=== PATIENT | male | born 1965 | race Caucasian/White ===

== ENCOUNTER → 2018-02-10 | Outpatient (CLI) | payer OTHER ==
--- NOTE | 2018-02-10 16:05 | XR ---
EXAMINATION TYPE: XR lumbosacral spine min 4V DATE OF EXAM: 02/10/2018 COMPARISON: None HISTORY: Sciatica left TECHNIQUE: Five-view lumbar spine FINDINGS: There 5 lumbar-type vertebral bodies. Pedicles are intact. There is narrowing of the disc h eight L3-4 through L5-S1. Upper lumbar spine disc heights are preserved. Vertebral body heights are p reserved. Mild spondylosis is present. Facet degenerative changes are present within the lumbar spine . No spondylolytic defects are evident. IMPRESSION: 1. Degenerative disc changes mid to lower lumbar spine
== END | disposition home or self-care (01) ==
LOC: RADXRYALE 15:40
PROVIDERS: ATTEND Physician Assistant Medical
DX: M47.816 Spondylosis without myelopathy or radiculopathy, lumbar region (principal)
CPT/HCPCS: 72110

== ENCOUNTER → 2018-02-26 | Outpatient (CLI) | payer OTHER ==
--- NOTE | 2018-02-27 21:23 | MR ---
EXAMINATION TYPE: MR lumbar spine wo con DATE OF EXAM: 02/26/2018 COMPARISON: Lumbar spine x-ray February 10, 2018. HISTORY: Lumbago with sciatica per order. Left-sided back pain into left buttocks since October 2017 pe r patient. TECHNIQUE: Multiplanar, multisequence imaging of the lumbar spine is performed without IV contrast. FINDINGS: Sagittal images of the lumbar spine show vertebral body heights and alignment to appear sat isfactory. There is disc desiccation L3-L3-L4 through the L5-S1 levels. Mild to moderate disc space L 4-L5 and L5-S1 levels is present with vacuum disc phenomenon L5-S1 level seen. Posterior disc herniat ions are seen at these levels with large inferior extrusion L4-L5 level noted sagittal image 7. The c onus medullaris is normal in position and signal ending mid L1 level. Some heterogeneous Modic type I I degenerative changes seen in the posterior L3-L4 disc space. Axial images show the T12-L1, L1-L2, and L2-L3 level all to appear within normal limits. Axial images at the L3-L4 level shows moderate broad disc bulge with central disc protrusion componen t, there is effacement of the anterior thecal sac. There is mild right-sided anterior inferior neural foraminal narrowing. Left-sided neural foramen is patent. Axial images at the L4-L5 level show mild facet degenerative changes bilaterally. There is mild broad disc bulge with left paracentral extrusion extending roughly 9 mm inferior to disc space, there is e ffacement of the anterior and anterolateral thecal sac as well as the central L5 nerve on axial image 6. There is mild right-sided anterior inferior neural foraminal narrowing. Left-sided neural foramen is patent. Axial images at the L5-S1 level show iojo-gy-zpynyvis facet degenerative changes bilaterally. There i s broad disc bulge with central disc protrusion component seen on axial image 3 minimally effacing an terior thecal sac. There is asymmetric mild to moderate right-sided inferior neural foraminal narrowi ng encroaching on exiting right L5 nerve sagittal image 13 along the anterior aspect. No suspicious retroperitoneal findings are identified. IMPRESSION: Multilevel degenerative changes in lumbar spine as detailed above, eccentric disc herniat ion L5-S1 level appears to encroach like anterior margin of the right L5 nerve. Most prominent disc h erniation or extrusion L4-L5 level appears to encroach the central left L5 nerve and likely accounts for patient's left-sided radiculopathy type symptoms.
== END | disposition home or self-care (01) ==
LOC: RADMRIMAIN 11:45
PROVIDERS: ATTEND Physician Assistant Medical
DX: M51.27 Other intervertebral disc displacement, lumbosacral region (principal); M47.816 Spondylosis without myelopathy or radiculopathy, lumbar region
CPT/HCPCS: 72148

== ENCOUNTER → 2018-04-18 | Outpatient (CLI) | payer OTHER ==
--- NOTE | 2018-04-18 12:00 | XR ---
EXAMINATION TYPE: XR chest 2V DATE OF EXAM: 04/18/2018 COMPARISON: NONE HISTORY: Preoperative examination. TECHNIQUE: Frontal and lateral views of the chest are obtained. FINDINGS: There is no focal air space opacity, pleural effusion, or pneumothorax seen. The cardiac silhouette size is within normal limits. The osseous structures are intact. IMPRESSION: No acute cardiopulmonary process.
== END | disposition home or self-care (01) ==
LOC: RADXRYALE 11:37
PROVIDERS: ATTEND Family Medicine
DX: Z01.818 Encounter for other preprocedural examination (principal)
CPT/HCPCS: 71046

== ENCOUNTER → 2018-09-13 | Outpatient (CLI) | payer OTHER | LOC: LABWHC1 10:34 | PROVIDERS: ATTEND Orthopaedic Surgery Orthopaedic Surgery of the Spine | DX: Z01.812 Encounter for preprocedural laboratory examination (principal); N28.9 Disorder of kidney and ureter, unspecified | CPT/HCPCS: 36415; 82565; 84520 ==

== ENCOUNTER 2018-09-26 09:49 | Day surgery (SDC) | payer OTHER ==
[2018-09-26 10:35] VITALS: BP 146/84; RESP 16; TEMP 97.9
[2018-09-26] MEDS ORDERED: LIDOCAINE 1% INJ 10MG/ML (20 ML MDV) SQ ONE (10:47)
[2018-09-26 11:10] VITALS: PULSE 72
--- NOTE | 2018-09-26 11:56 | IR ---
EXAMINATION TYPE: IR cvc insert >=5 years DATE OF EXAM: 09/26/2018 COMPARISON: NONE CLINICAL HISTORY: Infection, discitis Needs long-term intravenous access for antibiotics. PROCEDURE: After informed consent, the skin overlying the left basilic vein was localized with ultrasound and no jeremiah to be compressible and patent. An ultrasound image was obtained and submitted on the patient's c woods. The overlying skin was prepped and draped and Lidocaine was used for local anesthesia. A skin ross was made with a scalpel. Access was gained to the vein under ultrasound guidance with a 21 gau ge needle and a 0.018 inch wire was advanced. Access site was dilated with Peel-Away sheath and cath eter tailored to the appropriate length and advanced such that the distal tip is at the cavoatrial ju nction. Spot image was obtained verifying placement. Catheter was fixed to the skin and a sterile dressing was placed following hemostasis. Catheter was aspirated and flushed with saline. Patient w as discharged in stable condition without complication. Maximal barrier technique is utilized. Ultra sound image is documented on the chart. Ultrasound used with sterile technique. Fluoro time and fluoroscopic images submitted to document procedure: 48 intraoperative images, 0.8 mi nutes fluoroscopy time IMPRESSION: STATUS POST ULTRASOUND AND FLUOROSCOPIC GUIDED PICC LINE PLACEMENT, READY FOR USE. THIS PROCEDURE WAS PERFORMED BY THE UNDERSIGNED.
== END 2018-09-26 11:07 | disposition home or self-care (01) ==
LOC: CATHCVL 09:49
PROVIDERS: ATTEND Radiology Diagnostic Radiology
DX: M46.46 Discitis, unspecified, lumbar region (principal); I10 Essential (primary) hypertension; E66.9 Obesity, unspecified; M46.26 Osteomyelitis of vertebra, lumbar region; Z68.33 Body mass index [BMI] 33.0-33.9, adult; Z79.899 Other long term (current) drug therapy
CPT/HCPCS: 36573; C1751; C1769; J2001

== ENCOUNTER → 2018-11-21 | Day surgery (SDC) | payer OTHER ==
[2018-11-21 12:45] VITALS: BP 159/99; RESP 18; TEMP 97.7
--- NOTE | 2018-11-21 13:58 | IR ---
PICC LINE PLACEMENT: HISTORY: Malfunctioning current PICC line request for exchange over guidewire PROCEDURE: fluoroscopic guidance of PICC line exchange over guidewire. COMPLICATIONS: None ANESTHESIA: 1. 1% Lidocaine locally. FINDINGS/TECHNIQUE: The procedure was explained to the patient. The risks, complications, benefits and alternatives were discussed and any questions were answered. Informed consent was obtained. The patient was placed supine on the fluoroscopic table and prepped and draped in the usual sterile fash ion. Pre-existing PICC line was cut and removed over a a 0.018 guidewire. A 5-Fr sheath was placed over the guidewire. The guidewire and dilator were removed and a 5-F. Double lumen PICC line was lalita love through the sheath with the tip at the level of the SVC. The sheath was removed, the catheter wa s flushed and sutured into position. The patient was stable throughout the procedure and remained st able upon discharge from the Department of Radiology. The vein puncture was patent under ultrasound. A alexander scale image was obtained to document patency of the vein punctured. All elements of the maximal barrier technique were utilized. FLUOROSCOPY TIME: 0.4 minutes and one image submitted IMPRESSION: Successful PICC double lumen line exchange under fluoroscopic guidance.
== END ==
LOC: CATHCVL 12:26
PROVIDERS: ATTEND Radiology Diagnostic Radiology
DX: M46.26 Osteomyelitis of vertebra, lumbar region (principal); T85.618A Breakdown (mechanical) of other specified internal prosthetic devices, implants and grafts, initial encounter; M46.46 Discitis, unspecified, lumbar region; I10 Essential (primary) hypertension; Z72.0 Tobacco use; E66.9 Obesity, unspecified; Z68.34 Body mass index [BMI] 34.0-34.9, adult; Z79.899 Other long term (current) drug therapy
CPT/HCPCS: 36584; C1751; C1769 ×2; 36580

== ENCOUNTER 2020-11-25 15:55 | Inpatient (IN) | payer OTHER ==
[2020-11-25 16:35] LABS: Basophils # (A) 0.1 k/uL (0-0.2); Basophils % (A) 1 %; Eosinophils # (A) 0.1 k/uL (0-0.7); Eosinophils % (A) 1 %; HCT 43.4 % (39.0-53.0); HGB 15.4 gm/dL (13.0-17.5); Hyperchromasia Slight; Lymphocytes # (A) 2.1 k/uL (1.0-4.8); Lymphocytes % (A) 19 %; MCH 33.2 pg (25.0-35.0); MCHC 35.6 g/dL (31.0-37.0); MCV 93.2 fL (80.0-100.0); Mean Platelet Volume 7.2; Monocytes # (A) 0.3 k/uL (0-1.0); Monocytes % (A) 3 %; Neutrophils # (A) 8.5 k/uL (1.3-7.7); Neutrophils % (A) 75 %; Platelet Count 189 k/uL (150-450); RBC 4.66 m/uL (4.30-5.90); WBC 11.3 k/uL (3.8-10.6)
--- NOTE | 2020-11-25 16:39 | XR ---
EXAMINATION TYPE: XR chest 2V DATE OF EXAM: 11/25/2020 COMPARISON: Chest x-ray April 18, 2018 HISTORY: Chest pain since yesterday. TECHNIQUE: Frontal and lateral views of the chest are obtained. FINDINGS: There is chronic parenchymal change without suspicious focal air space opacity, pleural ef fusion, or pneumothorax seen. Diminish inspiration on current study. The cardiac silhouette size is e nlarged. The osseous structures are intact. IMPRESSION: Cardiomegaly and chronic changes without acute pulmonary process.
[2020-11-25] MEDS ORDERED: MORPHINE SULFATE 4 MG/ML SYRINGE IVP STA (16:40)
[2020-11-25 16:41] LABS: Prothrombin Time 10.9 sec (9.0-12.0)
[2020-11-25 16:43] LABS: Albumin 4.8 g/dL (3.5-5.0); Calcium 10.1 mg/dL (8.4-10.2); Potassium 4.4 mmol/L (3.5-5.1); Total Bilirubin 0.8 mg/dL (0.2-1.3); Total Protein 7.3 g/dL (6.3-8.2)
[2020-11-25] MEDS ORDERED: ATORVASTATIN 80 MG TAB PO STA (16:46)
[2020-11-25] MEDS ORDERED: NALOXONE 0.4 MG/ML 1 ML VIAL IV PRN (16:49)
[2020-11-25] MEDS ORDERED: HEPARIN SODIUM 1,000 UN/ML (10ML VL) IV ONE (16:49)
--- NOTE | 2020-11-25 16:51 | ED ---
General Adult HPI - General Chief complaint: Chest Pain Stated complaint: chest pain Time Seen by Provider: 11/25/20 16:09 Source: patient, EMS, RN notes reviewed, old records reviewed Mode of arrival: EMS Limitations: no limitations - History of Present Illness Initial comments: 55-year-old male history of hypertension, current smoker presenting for ev aluation of squeezing chest pain which began yesterday evening and was relieved with rest. Patient has no known history of coronary artery disease. He does have a positive family history of coronary artery disease in his father in his mid 50s. He was given aspirin nitroglycerin by EMS prior to arrival. His pain did slightly worsen today. Patient has persistent substernal squeezing chest pain which is described as moderate to severe. - Related Data Home Medications Medication Instructions Recorded Confirmed Cyclobenzaprine [Flexeril] 10 mg PO TID PRN 09/23/18 11/21/18 Losartan/Hydrochlorothiazide 1 tab PO QAM 09/23/18 11/21/18 [Losartan-Hctz 100-25 mg Tab] atenoloL [Atenolol] 25 mg PO HS 09/23/18 11/21/18 oxyCODONE-APAP 10-325MG [Percocet 1 tab PO Q6H PRN 09/23/18 11/21/18 10-325 mg] Allergies Allergy/AdvReac Type Severity Reaction Status Date / Time No Known Allergies Allergy Verified 09/23/18 09:29 Review of Systems ROS Statement: Those systems with pertinent positive or pertinent negative responses have been documented in the HPI. ROS Other: All systems not noted in ROS Statement are negative. Past Medical History Past Medical History: Hypertension, Sleep Apnea/CPAP/BIPAP Additional Past Medical History / Comment(s): CURRENT: BACK SURGERY APRIL 26, INFECTION IN DISC, NO OPEN WOUND. USES CPAP. History of Any Multi-Drug Resistant Organisms: None Reported Past Surgical History: Back Surgery Additional Past Surgical History / Comment(s): APRIL 26, 2019, LUMBAR. LEFT KNEE ARTHRO. Past Anesthesia/Blood Transfusion Reactions: No Reported Reaction Past Psychological History: No Psychological Hx Reported Smoking Status: Current every day smoker Past Alcohol Use History: Rare Past Drug Use History: None Reported - Past Family History Mother Family Medical History: No Reported History General Exam Limitations: no limitations General appearance: alert, in distress Head exam: Present: atraumatic, normocephalic Eye exam: Present: normal appearance ENT exam: Present: normal exam, mucous membranes dry Neck exam: Present: normal inspection. Absent: tenderness, meningismus Respiratory exam: Present: normal lung sounds bilaterally. Absent: respiratory distress, wheezes Cardiovascular Exam: Present: normal rhythm, bradycardia GI/Abdominal exam: Present: soft. Absent: distended, tenderness, guarding, rebound Extremities exam: Present: normal inspection, normal capillary refill. Absent: pedal edema, calf tenderness Neurological exam: Present: alert, oriented X3, CN II-XII intact. Absent: motor sensory deficit Psychiatric exam: Present: anxious, flat affect Skin exam: Present: warm, dry, intact, erythema Course Vital Signs 11/25/20 15:57 Pulse Rate 66 Respiratory 20 Rate Blood Pressure 144/96 O2 Sat by Pulse 100 Oximetry EKG Findings - EKG Comments: EKG Findings:: Initial EKG obtained at 1605, shows sinus bradycardia, there is some concern for ST segment elevation in V2 alone. T waves appear hyperacute. Rate of 54, AK interval 158, QRS duration 108, QTC 458. Repeat EKG obtained with worsening pain, shows worsening ST segment elevation in V2. He has a rate of 55, AK interval 148, QRS duration 106, QTC is 451, concern for acute CO Medical Decision Making - Medical Decision Making 55-year-old male with typical chest pain. No history but significant risk factors including hypertension, tobacco use, and family history. EKG is concerning and given the classic features with persistent pain and ST segment elevation in V2 Clutch Inspector was activated did discuss case with Dr. Burns who will evaluate the patient. - Lab Data Result diagrams: 11/25/20 16:19 11/25/20 16:19 Lab Results 11/25/20 11/25/20 11/25/20 Range/Units 16:19 16:19 16:19 WBC 11.3 H (3.8-10.6) k/uL RBC 4.66 (4.30-5.90) m/uL Hgb 15.4 (13.0-17.5) gm/dL Hct 43.4 (39.0-53.0) % MCV 93.2 (80.0-100.0) fL MCH 33.2 (25.0-35.0) pg MCHC 35.6 (31.0-37.0) g/dL RDW 13.0 (11.5-15.5) % Plt Count 189 (150-450) k/uL MPV 7.2 Neutrophils % 75 % Lymphocytes % 19 % Monocytes % 3 % Eosinophils % 1 % Basophils % 1 % Neutrophils # 8.5 H (1.3-7.7) k/uL Lymphocytes # 2.1 (1.0-4.8) k/uL Monocytes # 0.3 (0-1.0) k/uL Eosinophils # 0.1 (0-0.7) k/uL Basophils # 0.1 (0-0.2) k/uL Hyperchromasia Slight PT 10.9 (9.0-12.0) sec INR 1.0 (<1.2) APTT 22.0 (22.0-30.0) sec Sodium 137 (137-145) mmol/L Potassium 4.4 (3.5-5.1) mmol/L Chloride 100 (98-107) mmol/L Carbon Dioxide 25 (22-30) mmol/L Anion Gap 12 mmol/L BUN 15 (9-20) mg/dL Creatinine 1.35 H (0.66-1.25) mg/dL Est GFR (CKD-EPI)AfAm 68 (>60 ml/min/1.73 sqM) Est GFR (CKD-EPI)NonAf 59 (>60 ml/min/1.73 sqM) Glucose 149 H (74-99) mg/dL Calcium 10.1 (8.4-10.2) mg/dL Magnesium 2.0 (1.6-2.3) mg/dL Total Bilirubin 0.8 (0.2-1.3) mg/dL AST 41 (17-59) U/L ALT 48 (4-49) U/L Alkaline Phosphatase 64 (38-126) U/L Troponin I (0.000-0.034) ng/mL Total Protein 7.3 (6.3-8.2) g/dL Albumin 4.8 (3.5-5.0) g/dL Lipase 133 (23-300) U/L / Range/Units 16:19 WBC (3.8-10.6) k/uL RBC (4.30-5.90) m/uL Hgb (13.0-17.5) gm/dL Hct (39.0-53.0) % MCV (80.0-100.0) fL MCH (25.0-35.0) pg MCHC (31.0-37.0) g/dL RDW (11.5-15.5) % Plt Count (150-450) k/uL MPV Neutrophils % % Lymphocytes % % Monocytes % % Eosinophils % % Basophils % % Neutrophils # (1.3-7.7) k/uL Lymphocytes # (1.0-4.8) k/uL Monocytes # (0-1.0) k/uL Eosinophils # (0-0.7) k/uL Basophils # (0-0.2) k/uL Hyperchromasia PT (9.0-12.0) sec INR (<1.2) APTT (22.0-30.0) sec Sodium (137-145) mmol/L Potassium (3.5-5.1) mmol/L Chloride (98-107) mmol/L Carbon Dioxide (22-30) mmol/L Anion Gap mmol/L BUN (9-20) mg/dL Creatinine (0.66-1.25) mg/dL Est GFR (CKD-EPI)AfAm (>60 ml/min/1.73 sqM) Est GFR (CKD-EPI)NonAf (>60 ml/min/1.73 sqM) Glucose (74-99) mg/dL Calcium (8.4-10.2) mg/dL Magnesium (1.6-2.3) mg/dL Total Bilirubin (0.2-1.3) mg/dL AST (17-59) U/L ALT (4-49) U/L Alkaline Phosphatase (38-126) U/L Troponin I 0.015 (0.000-0.034) ng/mL Total Protein (6.3-8.2) g/dL Albumin (3.5-5.0) g/dL Lipase (23-300) U/L Disposition Clinical Impression: ST elevation myocardial infarction (STEMI) Disposition: ADMITTED IP TO THIS HOSP Condition: Serious Is patient prescribed a controlled substance at d/c from ED?: No Referrals: Corbin Najera DO [Primary Care Provider] - 1-2 days Decision to Admit Reason: Admit from EC Decision Date: 11/25/20 Decision Time: 16:58
[2020-11-25] MEDS ORDERED: NITROGLYCERIN SL TABS 0.4 MG TAB SUBLINGUAL PRN ×2 (16:53→17:58)
[2020-11-25] MEDS ORDERED: MIDAZOLAM 2 MG/2 ML VIAL IVP ONE (17:10)
[2020-11-25] MEDS ORDERED: fentaNYL (PF) 50 MCG/ML 2 ML AMP ONE (17:10)
[2020-11-25] MEDS ORDERED: fentaNYL (PF) 50 MCG/ML 2 ML AMP IVP ONE (17:10)
[2020-11-25] MEDS ORDERED: LIDOCAINE 1% INJ 10MG/ML (20 ML MDV) ONE (17:10)
[2020-11-25] MEDS ORDERED: LIDOCAINE 1% INJ 10MG/ML (20 ML MDV) SQ ONE (17:12)
[2020-11-25] MEDS ORDERED: IV FLUID CONTINUATION 1,000 ML IV ONE (17:19)
[2020-11-25] MEDS ORDERED: BIVALIRUDIN BOLUS 250 MG/50 ML IV ONE (17:26)
[2020-11-25] MEDS ORDERED: PRASUGREL 10 MG TAB PO ONE (17:30)
[2020-11-25] MEDS ORDERED: PRASUGREL 10 MG TAB ONE (17:30)
[2020-11-25] MEDS ORDERED: niCARdipine 25 MG/10 ML VIAL ONE (17:35)
[2020-11-25] MEDS ORDERED: IOPAMIDOL-370 100ML BTL INJ ONE ×2 (17:40→17:49)
[2020-11-25] MEDS ORDERED: BIVALIRUDIN 250 MG in SODIUM CHLORIDE 0.9% 50 ML IV ONE (17:40)
[2020-11-25] MEDS ORDERED: MAG HYDROX/AL HYDROX/SIMETH 30 ML CUP PO PRN (17:58)
[2020-11-25] MEDS ORDERED: RX INFO: IV CONTRAST WAS GIVEN 1 EACH MISC MISCELLANE PRN (17:58)
[2020-11-25] MEDS ORDERED: ATROPINE SULFATE 0.1 MG/ML 10ML SYRINGE IV PRN (17:58)
[2020-11-25] MEDS ORDERED: ZOLPIDEM 5 MG TAB PO PRN (17:58)
[2020-11-25] MEDS ORDERED: SODIUM CHLORIDE 0.9% 1,000 ML IV SCH (18:00)
[2020-11-25 18:51] LABS: Glucose,Whole Blood 102 mg/dL (75-99)
[2020-11-25] MEDS ORDERED: ACETAMINOPHEN TAB 500 MG TAB PO PRN (20:10)
[2020-11-25] MEDS ORDERED: ALPRAZolam 0.25 MG TAB PO PRN (20:10)
[2020-11-25] MEDS ORDERED: HYDROmorphone 0.5 MG/0.5 ML SYRINGE IVP PRN (20:10)
[2020-11-25] MEDS ORDERED: TEMAZEPAM 15 MG CAP PO PRN (20:10)
[2020-11-25] MEDS: METOPROLOL TARTRATE 25 MG TAB PO SCH (20:27)
[2020-11-25] MEDS: NICOTINE 14MG/24HR PATCH TRANSDERM SCH (20:27)
[2020-11-25] MEDS: PANTOPRAZOLE 40 MG TABLET PO SCH (20:27)
--- NOTE | 2020-11-25 22:00 | HP ---
HISTORY AND PHYSICAL DATE OF SERVICE: 11/25/2020 CHIEF COMPLAINT: Chest pain. HISTORY OF PRESENT ILLNESS: This 55-year-old gentleman with a past medical history of sleep apnea, history of hypertension, history of back surgery, history of back infection, diskitis, being followed by Dr. Najera in the outpatient setting, apparently had left-sided chest pain which was a pressure type of pain which was on and off. The patient apparently passed out, hitting the right side of the face. EMS was called and the patient was given nitroglycerin. The patient had some relief of the pain. Patient came to [facility]. EKG showed diffuse ST-T changes in the anterior leads, including acute myocardial infarction with some Q-waves also. The patient underwent cardiac catheterization. LAD stent was done. The detailed report is pending at this time. Creatinine is 1.35. White count is 11.3. There is no history of any fever, rigor or chills. No history of headache, loss of consciousness, seizures. Patient works in delivery. PAST MEDICAL HISTORY: History of hypertension, sleep apnea, history of back surgery, diskitis. MEDICATIONS: Motrin, Tenormin, losartan, hydrochlorothiazide. Doses are reviewed. ALLERGIES: NONE. FAMILY HISTORY: No history of heart disease or strokes in the family. SOCIAL HISTORY: History of smoking. No history of alcohol intake. REVIEW OF SYSTEMS: ENT: No diminished hearing. No diminished vision. CARDIOVASCULAR SYSTEM: As mentioned earlier. RESPIRATORY SYSTEM: As mentioned earlier. GI: No nausea, vomiting, diarrhea. : No dysuria or retention. NERVOUS SYSTEM: No numbness, weakness. ALLERGY/IMMUNOLOGY: No asthma, hayfever. MUSCULOSKELETAL: As mentioned earlier. HEMATOLOGY/ONCOLOGY: No history of anemia. ENDOCRINE: No history of diabetes, hypothyroidism. CONSTITUTIONAL: As mentioned earlier. DERMATOLOGY: Negative. RHEUMATOLOGY: Negative. PSYCHIATRY: As mentioned earlier. PHYSICAL EXAMINATION: Patient is alert and oriented x3. Pulse 73, blood pressure 133/87, respiration 12, temperature 97 degrees, pulse ox 93% on room air. HEENT: Conjunctivae normal. NECK: No jugular venous distention. CARDIOVASCULAR SYSTEM: S1, S2 muffled. RESPIRATORY SYSTEM: Breath sounds diminished at the bases. No rhonchi. No crackles. ABDOMEN: Soft, non-tender. No mass palpable. LEGS: No edema. No swelling. NERVOUS SYSTEM: Higher functions as mentioned earlier. Moves all 4 limbs. No focal motor or sensory deficit. LYMPHATICS: No lymph node palpable in neck, axillae or groin. SKIN: No ulcer, rash, bleeding. JOINTS: No active deforming arthropathy. LABS: WBC 11.3, hemoglobin 15.4, sodium 137, potassium 4.4, creatinine 1.35. ASSESSMENT: 1. Acute anterior wall hyperacute myocardial infarction, status post cardiac catheterization and stenting of the LAD. 2. Increased white count. 3. Increased creatinine with mild acute renal failure. 4. Increased random blood sugar. 5. History of sleep apnea. 6. History hypertension. 7. History of back surgery, diskitis and PICC line. 8. History of nicotine dependence. 9. Obesity with body mass index of 34.6. 10.FULL CODE. RECOMMENDATIONS AND DISCUSSION: In this 55-year-old gentleman who presented with multiple complex medical issues, we will monitor the patient closely, continue the current medications, continue dual antiplatelet treatment, beta blockers, Lipitor. Otherwise, closely monitor with Cardiology. Prognosis guarded because of multiple complex medical issues. Further recommendations to follow. A copy of this dictation is being forwarded to Dr. Najera, who is the primary physician. Two-D echo has been ordered. Symptomatic treatment also will be provided. DVT prophylaxis. Proton pump inhibitors. MMODL / IJN: [id number] /
[2020-11-25 22:25] LABS: Appearance,Urine Clear (Clear); Bilirubin,Urine Negative (Negative); Blood,Urine Negative (Negative); Color,Urine Light Yellow; Glucose,Urine (UA) Negative (Negative); Ketones,Urine Trace (Negative); Leukocyte Esterase,Urine Negative (Negative); Nitrite,Urine Negative (Negative); Protein,Urine Negative (Negative); Specific Gravity,Urine 1.015 (1.001-1.035); Urobilinogen,Urine <2.0 mg/dL (<2.0)
--- NOTE | 2020-11-25 22:46 | CC ---
CARDIAC CATHETERIZATION REPORT INDICATION: Acute anterior wall myocardial infarction. PROCEDURE NOTE: After obtaining informed consent, left heart catheterization and coronary angiogram were performed via the right femoral artery using standard Beau catheters. The patient tolerated the procedure well without any obvious immediate complications. FINDINGS: HEMODYNAMICS: Left ventricular end-diastolic pressure is 22 mm. There is no gradient across the aortic valve. LEFT VENTRICULOGRAM: Not performed. ANGIOGRAPHIC DATA: LEFT MAIN CORONARY ARTERY: Left main coronary artery appears calcified but is free of significant stenosis. Divides into left anterior descending coronary artery and circumflex coronary artery. LEFT ANTERIOR DESCENDING CORONARY ARTERY: LAD is totally occluded in the proximal part. The diagonal branch is free of significant disease. CIRCUMFLEX CORONARY ARTERY: Circumflex coronary artery gives off a large caliber OM branch that shows an area of plaque with a 70% to 80% stenosis. RIGHT CORONARY ARTERY: Right coronary artery shows [id number]-[id number] nonobstructive disease. CONCLUSIONS: 1. Complete occlusion of the LAD which is responsible for the acute myocardial infarction. 2. 70% to 80% stenosis involving the OM branch. PLAN: Patient will undergo emergent angioplasty of the LAD. MMODL / IJN: [id number] /
--- NOTE | 2020-11-25 22:50 | CONS ---
CONSULTATION REFERRING PHYSICIAN: Dr. Najera. CHIEF COMPLAINT: Chest pain. HISTORY OF PRESENT ILLNESS: Mr. Dubois is a 55-year-old gentleman with history of hypertension, smoker, and strong family history of premature coronary artery disease, who presented to hospital complaining of chest pain. The patient has had recurrent episodes of precordial chest pain yesterday and again while at work, he had further episodes of chest pressure due to which he came to the emergency room. He came to the ER at 4:05 pm and an EKG done at that time showed acute anterior wall myocardial infarction. EKG at that time showed acute anterior wall myocardial infarction. The STEMI on this patient was called at 4:45 pm that is when the ER physician identified an acute myocardial infarction and the STEMI team was activated. industrial laborer team was in the hospital and has expeditiously moved the patient from the ER to the cath lab nurse and I saw the patient in the cath lab nurse. The patient was still in pain, but the pain was improving. EKG shows acute ST-segment elevation in the anterior wall. The patient is hemodynamically stable. He was advised to undergo emergent cardiac catheterization. PAST MEDICAL HISTORY: Significant for hypertension and dyslipidemia. MEDICATIONS: Medications at home include a beta sari and losartan. I do not have the doses. ALLERGIES: None. FAMILY HISTORY: Significant for premature coronary artery disease in his father. SOCIAL HISTORY: Significant smoking. There is no history of EtOH abuse or drug abuse. REVIEW OF SYSTEMS: HEENT is unremarkable. CARDIAC: As described above. RESPIRATORY: As described above. GI: Negative. GENITOURINARY: Negative. ALLERGY/IMMUNOLOGY: Negative. SKIN negative. MUSCULOSKELETAL negative. ENDOCRINE: Negative. DERM negative. CONSTITUTIONAL: Negative. ONCOLOGICAL: Negative. CT TECH negative. Rest of the system review is not relevant. PHYSICAL EXAM: Appears comfortable at rest, stable hemodynamically. There is no jugular venous distention. Carotid upstroke is normal. There is no bruit. Chest exam reveals good air entry bilaterally. Heart exam reveals first and second heart sounds. No gallop. No murmur. No rub. Abdomen is soft, nontender. Examination of extremities did not reveal any edema. Peripheral pulses are felt. LABORATORY DATA: Labs are pending at this time. ASSESSMENT: Acute anterior wall myocardial infarction. PLAN: The patient will undergo emergent cardiac catheterization with a view to performing an angioplasty on him. MMODL / IJN: [id number] /
--- NOTE | 2020-11-25 22:50 | LTR ---
DATE OF SERVICE: 11/25/2020 Dear Corbin: I performed cardiac catheterization on Huy Dubois. A detailed catheterization note is enclosed for your records. In brief, the patient with multiple coronary risk factors including hypertension, smoking and family history of premature coronary artery disease, presented to [facility] with acute anterior wall myocardial infarction and underwent emergent cardiac catheterization that revealed acutely occluded LAD. The patient will undergo angioplasty and stent placement of the same. The patient has a lesion in the OM branch which will be addressed down the road. Thank you for giving us the privilege to participate in this pleasant gentleman. Sincerely, MMCONNIEL / IJN: [id number] /
--- NOTE | 2020-11-25 23:02 | PTCA ---
PERCUTANEOUSTRANS CORORONARY ANGIOGRAPHY DATE OF SERVICE: 11/25/2020 PERFORMING PHYSICIAN: Kamron Burdick MD. PROCEDURE PERFORMED: 1. Aspiration thrombectomy from the left anterior descending artery. 2. Successful stenting of the mid LAD using 3.0 x 18 mm Xience drug-eluting stent with an excellent angiographic results. 3. Selective right common femoral artery angiogram. INDICATION: This is a 55-year-old gentleman who presented to the hospital with chest discomfort and was diagnosed with acute anterior ST-elevation myocardial infarction. He underwent an emergent heart catheterization by Dr. Burns. APPROACH: Right common femoral artery. COMPLICATION: None. LEVEL OF SEDATION: Moderate with sedation length of 19 minutes. Door to balloon is 97 minutes. Please note that door to balloon delay was because the patient was in the ER for a long time. PROCEDURE DESCRIPTION: Please refer to diagnostic heart catheterization was performed by Dr. Burns. Anticoagulation was initiated using Angiomax. Subsequently, I did engage the left main using XB 3.5 LAD guide. Subsequently, I crossed the lesion in the LAD using a run-through wire. After that I did aspiration thrombectomy using the Bowler catheter with extraction of small amount of thrombus. After that, I did PTCA using 2.5 x 12 mm balloon before I deployed 3.0 x 15 x 18 mm Xience drug-eluting stent where the stent was positioned under fluoroscopy guidance and deployed under 14 atmospheres for 20 seconds. The following angiogram showed good angiographic results and the procedure was completed without any complication. POSTPROCEDURE MANAGEMENT: 1. Dual anti-platelet therapy. 2. Risk factor modifications. 3. Follow up with the patient. MMODL / IJN: [id number] /
[2020-11-26] MEDS ORDERED: METOPROLOL TARTRATE 25 MG TAB PO STA (00:19)
[2020-11-26] MEDS: HYDROcodone/APAP 5-325MG 1 EACH TAB PO PRN (04:37)
[2020-11-26 04:43] LABS: Basophils # (A) 0.1 k/uL (0-0.2); Basophils % (A) 1 %; Eosinophils # (A) 0.1 k/uL (0-0.7); Eosinophils % (A) 1 %; HCT 41.8 % (39.0-53.0); HGB 15.2 gm/dL (13.0-17.5); Hyperchromasia Slight; Lymphocytes # (A) 2.5 k/uL (1.0-4.8); Lymphocytes % (A) 29 %; MCHC 36.4 g/dL (31.0-37.0); MCV 93.3 fL (80.0-100.0); Mean Platelet Volume 7.2; Monocytes # (A) 0.5 k/uL (0-1.0); Monocytes % (A) 6 %; Neutrophils # (A) 5.3 k/uL (1.3-7.7); Neutrophils % (A) 62 %; Platelet Count 160 k/uL (150-450); RBC 4.48 m/uL (4.30-5.90); RDW 12.9 % (11.5-15.5); WBC 8.6 k/uL (3.8-10.6)
[2020-11-26 04:51] LABS: African American GFR (CKD) >90 (>60 ml/min/1.73 sqM); Anion Gap 3 mmol/L; Blood Urea Nitrogen 14 mg/dL (9-20); Carbon Dioxide 33 mmol/L (22-30); Chloride 101 mmol/L (98-107); Glucose 105 mg/dL (74-99); Non-African American GFR(CKD) 88 (>60 ml/min/1.73 sqM); Sodium 137 mmol/L (137-145)
[2020-11-26] MEDS: PANTOPRAZOLE 40 MG TABLET PO SCH (06:38)
[2020-11-26] MEDS: ASPIRIN 81 MG PO SCH (08:26)
[2020-11-26] MEDS: METOPROLOL TARTRATE 25 MG TAB PO SCH ×2 (08:26→20:03)
[2020-11-26] MEDS: NICOTINE 14MG/24HR PATCH TRANSDERM SCH (08:26)
[2020-11-26 11:02] VITALS: BMI 36.5
--- NOTE | 2020-11-26 11:33 | ECHOF ---
Referral Reason:STEMI MEASUREMENTS -------- HEIGHT: 182.9 cm WEIGHT: 122.0 kg BP: 135/88 RVIDd: 3.7 cm (< 3.3) IVSd: 1.8 cm (0.6 - 1.1) LVIDd: 4.5 cm (3.9 - 5.3) LVPWd: 1.7 cm (0.6 - 1.1) IVSs: 2.3 cm LVIDs: 3.0 cm LVPWs: 2.0 cm LA Diam: 4.0 cm (2.7 - 3.8) LAESV Index (A-L): 24.91 ml/m Ao Diam: 3.9 cm (2.0 - 3.7) AV Cusp: 2.5 cm (1.5 - 2.6) MV EXCURSION: 19.176 mm (> 18.000) MV EF SLOPE: 96 mm/s (70 - 150) EPSS: 0.3 cm MV E Volodymyr: 0.68 m/s MV DecT: 197 ms MV A Volodymyr: 0.66 m/s MV E/A Ratio: 1.02 RAP: 5.00 mmHg RVSP: 31.03 mmHg FINDINGS -------- Sinus rhythm. This was a technically adequate study. The left ventricular size is normal. There is severe concentric left ventricular hypertrophy. Ove rall left ventricular systolic function is moderately impaired with, an EF between 35 - 40 %. Mid i nferoseptal LV wall motion is hypokinetic. Apical anterior LV wall motion is akinetic. Apical l ateral LV wall motion is akinetic. Apical inferior LV wall motion is akinetic. Apical septum LV wall motion is akinetic. The right ventricle is mild to moderately enlarged. Normal LA size by volume 22+/-6 ml/m2. The right atrium is normal in size. The aortic valve is trileaflet, and appears structurally normal. No aortic stenosis or regurgitation. Mild mitral annular calcification present. Mild tricuspid regurgitation present. Right ventricular systolic pressure is normal at < 35 mmHg. Trace/mild (physiologic) pulmonic regurgitation. The aortic root is dilated measuring 3.9cm. IVC Not well visulized. There is no pericardial effusion. CONCLUSIONS -------- 1. The left ventricular size is normal. 2. There is severe concentric left ventricular hypertrophy. 3. Mid inferoseptal LV wall motion is hypokinetic. 4. Apical anterior LV wall motion is akinetic. 5. Apical lateral LV wall motion is akinetic. 6. Apical inferior LV wall motion is akinetic. 7. Apical septum LV wall motion is akinetic. 8. The right ventricle is mild to moderately enlarged. 9. Mild mitral annular calcification present. 10. Mild tricuspid regurgitation present. 11. Trace/mild (physiologic) pulmonic regurgitation. 12. The aortic root is dilated measuring 3.9cm. 13. There is no pericardial effusion. [facility] TECHNICIAN: Vania Lieberman RDCS
--- NOTE | 2020-11-26 11:42 | P.PN ---
Subjective Progress Note Date: 11/26/20 HISTORY OF PRESENT ILLNESS: Patient examined this morning at the bedside by Dr. Burns. Patient is s/p cardiac cath with PCI to the LAD. Patient denies chest pain or pressure. Denies shortness of breath. blood pressure 119/78. He is on room air with oxygen saturations greater than 92%. Heart rate is in the 50s60s. He is sinus mechanism on telemetry. He is afebrile. echocardiogram completed ejection fraction 35-40%, LV hypokinesis, and mild tricuspid regurgitation. PHYSICAL EXAM: VITAL SIGNS: Reviewed. GENERAL: Well-developed in no acute distress. NECK: Supple. No JVD or thyromegaly LUNGS: Respirations even and unlabored. Lungs essentially clear to auscultation bilaterally. HEART: Regular rate and rhythm. S1 and S2 heard. right groin soft with no hematoma present. EXTREMITIES: Normal range of motion. No clubbing or cyanosis. Peripheral pulse s intact. No lower extremity edema ASSESSMENT: STEMI, s/p PCI to LAD Coronary artery disease Ischemic cardiomyopathy Hypertension Nicotine dependence Family history of premature coronary artery disease PLAN: Obtain additional troponin Continue aspirin, lipitor, metoprolol, and effient Add lisinopril 2.5mg daily Smoking cessation recommended May transfer to Further recommendations pending patient course Nurse practitioner note has been reviewed by physician. Signing provider agrees with the documented findings, assessment, and plan of care. Objective - Vital Signs Vital signs: Vital Signs Temp 98 F 11/26/20 08:00 Pulse 52 L 11/26/20 10:00 Resp 21 11/26/20 10:00 BP 119/78 11/26/20 11:00 Pulse Ox 94 L 11/26/20 10:00 Intake & Output 11/25/20 11/26/20 11/26/20 18:59 06:59 18:59 Intake Total 378 375 Output Total 1150 300 Balance 378 -775 -300 Weight 115.666 kg 122.2 kg 122.2 kg Intake: IV 378 375 Sodium Chloride 0.9% 1, 150 375 000 ml @ 75 mls/hr IV . [id number] [facility] Rx#:[id number] Output: Urine 1150 300 Other: Voiding Method Urinal Urinal - Labs CBC & Chem 7: 11/26/20 04:03 11/26/20 04:03 Labs: Abnormal Lab Results - Last 24 Hours (Table) 11/25/20 11/25/20 11/25/20 Range/Units 16:19 16:19 18:49 WBC 11.3 H (3.8-10.6) k/uL Neutrophils # 8.5 H (1.3-7.7) k/uL Carbon Dioxide (22-30) mmol/L Creatinine 1.35 H (0.66-1.25) mg/dL Glucose 149 H (74-99) mg/dL POC Glucose (mg/dL) 102 H (75-99) mg/dL Troponin I (0.000-0.034) ng/mL Urine Ketones (Negative) 11/25/20 11/26/20 11/26/20 Range/Units 21:40 04:03 08:22 WBC (3.8-10.6) k/uL Neutrophils # (1.3-7.7) k/uL Carbon Dioxide 33 H (22-30) mmol/L Creatinine (0.66-1.25) mg/dL Glucose 105 H (74-99) mg/dL POC Glucose (mg/dL) (75-99) mg/dL Troponin I 58.900 H* (0.000-0.034) ng/mL Urine Ketones Trace H (Negative)
--- NOTE | 2020-11-26 12:39 | XR ---
EXAMINATION TYPE: XR hand limited bilateral DATE OF EXAM: 11/26/2020 CLINICAL HISTORY: 55-year-old male with fall yesterday. Complains of pain and swelling in the left fi rst digit and right second third and fourth digits of the hands. TECHNIQUE: Frontal and lateral views of of the bilateral hands are obtained. COMPARISON: None. FINDINGS: Left hand: There is a prominent bony spur at the lateral (radial) aspect of the distal phalangeal tuf t of the second digit. No definite evidence of acute fracture or dislocation of the left hand. There is a metallic foreign body within the soft tissues of the medial (ulnar) left palm measuring 2.7 mm. Mild narrowing of the radiocarpal joint space. Right hand: No evidence of acute fracture or dislocation of the right hand. Overlying tubing at the lateral aspect of the right hand obscures visualization. Mild narrowing of the radiocarpal joint spa ce. IMPRESSION: 1. No evidence of acute fracture or dislocation of the hand. 2. 2.7 mm metallic foreign body within the soft tissues of the medial left palm. 3. Mild bilateral narrowing of the radiocarpal joint space is suggestive posterior arthritis.
[2020-11-26] MEDS ORDERED: FLUTICASONE 50MCG/SPRAY NASAL 16GM EA NOSTRIL PRN (14:49)
[2020-11-26] MEDS: ATORVASTATIN 80 MG TAB PO SCH (20:03)
--- NOTE | 2020-11-26 22:47 | P.PN ---
Subjective This is a pleasant 55 years old male with past medical history of hypertension, obesity, nicotine dependence presents with chest pain found to have ST elevation myocardial infarction and he had to have a stent placed to his LAD via cardiac cath by cardiology team. Today he was seen in the ICU, resting in bed with no symptoms. He complains from some pain in his left thumb and right second and middle fingers and he may attribute that to fall in. X-ray of the heart were negative for acute process. No fracture or dislocation. Patient with no dyspnea or chest pain while at rest. Echocardiogram showed ejection fraction of 35-40% with severe LVH. Patient is a started on aspirin and effient , also he is on metoprolol and lisinopril 2.5 mg. Vitals and labs are stable. Objective - Vital Signs Vital signs: Vital Signs Temp 98 F 11/26/20 00:00 Pulse 56 L 11/26/20 07:00 Resp 15 11/26/20 07:00 BP 135/88 11/26/20 07:00 Pulse Ox 94 L 11/26/20 07:00 Intake & Output 11/25/20 11/26/20 11/26/20 18:59 06:59 18:59 Intake Total 378 375 Output Total 1150 300 Balance 378 -775 -300 Weight 115.666 kg 122.2 kg Intake: IV 378 375 Sodium Chloride 0.9% 1, 150 375 000 ml @ 75 mls/hr IV . [id number] [facility] Rx#:[id number] Output: Urine 1150 300 Other: Voiding Method Urinal - Exam GENERAL: The patient is alert and oriented x3, not in any acute distress. Well developed, well nourished. HEENT: Pupils are round and equally reacting to light. EOMI. No scleral icterus. No conjunctival pallor. Normocephalic, atraumatic. No pharyngeal erythema. No thyromegaly. CARDIOVASCULAR: S1 and S2 present. No murmurs, rubs, or gallops. PULMONARY: Chest is clear to auscultation, no wheezing or crackles. ABDOMEN: Soft, nontender, nondistended, normoactive bowel sounds. No palpable organomegaly. MUSCULOSKELETAL: No joint swelling or deformity. EXTREMITIES: No cyanosis, clubbing, or pedal edema. NEUROLOGICAL: Gross neurological examination did not reveal any focal deficits. SKIN: No rashes. no petechiae. - Labs CBC & Chem 7: 11/26/20 04:03 11/26/20 04:03 Labs: Abnormal Lab Results - Last 24 Hours (Table) 11/25/20 11/25/20 11/25/20 Range/Units 16:19 16:19 18:49 WBC 11.3 H (3.8-10.6) k/uL Neutrophils # 8.5 H (1.3-7.7) k/uL Carbon Dioxide (22-30) mmol/L Creatinine 1.35 H (0.66-1.25) mg/dL Glucose 149 H (74-99) mg/dL POC Glucose (mg/dL) 102 H (75-99) mg/dL Urine Ketones (Negative) 11/25/20 11/26/20 Range/Units 21:40 04:03 WBC (3.8-10.6) k/uL Neutrophils # (1.3-7.7) k/uL Carbon Dioxide 33 H (22-30) mmol/L Creatinine (0.66-1.25) mg/dL Glucose 105 H (74-99) mg/dL POC Glucose (mg/dL) (75-99) mg/dL Urine Ketones Trace H (Negative) Assessment and Plan Assessment: Acute STEMI status post PCI to LAD Ischemic cardiomyopathy with ejection fraction 35-40% Hypertension Nicotine dependence Obesity with BMI of 36.5 Plan: This is a pleasant 55 years old male with STEMI. Continue with aspirin and effient , he is on metoprolol and lisinopril. Continue with statin. Cardiology team following patient closely. Labs and medication were reviewed.. Continue same treatment. Continue with symptomatic treatment. Resume home medication. Monitor lytes and vitals. DVT and GI prophylaxis. Further recommendationsas per clinical course of the patient Possible discharge in 24-48 hours if keeps improvement and cleared by cardiology team
[2020-11-27] MEDS: PANTOPRAZOLE 40 MG TABLET PO SCH (06:19)
[2020-11-27] MEDS ORDERED: FUROSEMIDE 10 MG/ML 2 ML VIAL IV ONE (08:57)
[2020-11-27] MEDS: ASPIRIN 81 MG PO SCH (09:58)
[2020-11-27] MEDS: PRASUGREL 10 MG TAB PO SCH (09:59)
[2020-11-27] MEDS: METOPROLOL TARTRATE 25 MG TAB PO SCH ×2 (10:02→20:00)
[2020-11-27] MEDS: HYDROcodone/APAP 5-325MG 1 EACH TAB PO PRN (10:03)
[2020-11-27] MEDS: NICOTINE 14MG/24HR PATCH TRANSDERM SCH (10:04)
--- NOTE | 2020-11-27 10:07 | US ---
EXAMINATION TYPE: US venous doppler duplex UE RT DATE OF EXAM: 11/27/2020 COMPARISON: NONE CLINICAL HISTORY: Right hand swelling/pain. SIDE PERFORMED: Right Right IJV, subclavian, axillary, brachial, cephalic, basilic, radial, and ulnar imaged. Right Arm: Negative for DVT IMPRESSION: No evidence of deep venous thrombosis in the visualized right upper extremity.
--- NOTE | 2020-11-27 10:56 | P.PN ---
Subjective This is a pleasant 55-year-old male past medical history significant for hypertension and chronic nicotine dependence. He presents to the hospital with acute anterior wall myocardial infarction. He is status post thrombectomy PCI of the LAD. Echocardiogram obtained revealed impaired LV systolic function with ejection fraction 35-40%, apical anterior, mid inferior septal, apical lateral, apical inferior and apical septal LV wall motion akinesia. He is seen and examined resting comfortably laying flat in bed in no acute distress. He states he was up ambulating in the halls this morning had a shower and ate breakfast without incident. He has no symptoms of chest discomfort, shortness of breath, dizziness or palpitations. He is complaining of pain and swelling to the right arm and hand. Primary care team has ordered a venous Doppler. X-rays are unremarkable. Blood pressure 106/65 heart rate 68 afebrile maintaining oxyg en saturation on room air. Telemetry tracings unremarkable for an arrhythmia. GENERAL: Well-appearing, well-nourished and in no acute distress. NECK: Supple without JVD or thyromegaly. LUNGS: Breath sounds clear to auscultation bilaterally. Respiration equal and unlabored. No wheezes, rales or rhonchi. HEART: Regular rate and rhythm without murmurs, rubs or gallops. S1 and S2 heard. EXTREMITIES: Normal range of motion, no edema. No clubbing or cyanosis. Peripheral pulses intact. ASSESSMENT Anterior wall ST elevated myocardial infarction Ischemic cardiomyopathy Hypertension Dyslipidemia Chronic nicotine dependence PLAN Check stat baseline lipid panel. Continue dual anti-platelet therapy, beta blockers, lisinopril and atorvastatin as ordered. Increase activity and ambulation as much as he can tolerate. Probable discharge tomorrow if he remains stable. Nurse Practitioner note has been reviewed, I agree with a documented findings and plan of care. Patient was seen and examined. Objective - Vital Signs Vital signs: Vital Signs Temp 97.6 F 11/27/20 08:53 Pulse 68 11/27/20 08:53 Resp 16 11/27/20 08:53 BP 106/65 11/27/20 08:53 Pulse Ox 95 11/27/20 08:53 Intake & Output 11/26/20 11/27/20 11/27/20 18:59 06:59 18:59 Intake Total 10 Output Total 1650 Balance -1650 10 Weight 122.2 kg 116.5 kg Intake: IV 10 0.9 10 Output: Urine 1650 Other: Voiding Method Urinal Toilet # Voids 1 # Bowel Movements 1 - Labs CBC & Chem 7: 11/26/20 04:03 11/26/20 04:03 Labs: Abnormal Lab Results - Last 24 Hours (Table) 11/26/20 Range/Units 08:22 Troponin I 58.900 H* (0.000-0.034) ng/mL
--- NOTE | 2020-11-27 12:08 | P.PN ---
Subjective This is a pleasant 55 years old male with past medical history of hypertension, obesity, nicotine dependence presents with chest pain found to have ST elevation myocardial infarction and he had to have a stent placed to his LAD via cardiac cath by cardiology team. Today he was seen in the ICU, resting in bed with no symptoms. He complains from some pain in his left thumb and right second and middle fingers and he may attribute that to fall in. X-ray of the heart were negative for acute process. No fracture or dislocation. Patient with no dyspnea or chest pain while at rest. Echocardiogram showed ejection fraction of 35-40% with severe LVH. Patient is a started on aspirin and effient , also he is on metoprolol and lisinopril 2.5 mg. Vitals and labs are stable. 11/27/2020 Patient with no chest pain or dyspnea. However he is complaining of from right hand pain and minimal swelling up to the distal forearm, patient had IV line infiltrated in his right hand yesterday and they wanted to the left arm today. Doppler of the right upper extremity is negative for DVT. X-ray of both hands showing no fracture or dislocation and some osteoarthritic changes, he has altered mental in his left hand and patient states this is chronic for 30-40 years. Pulsation is intact in both upper extremity and both radial arteries. [employer] is strong on both sides. No numbness. He has ejection fraction of 35-40% and severe LVH however patient with no dyspnea even with exertion when he woke the hallway today. Cartilage team input is appreciated and patient remains on aspirin and effient Objective - Vital Signs Vital signs: Vital Signs Temp 97.6 F 11/27/20 08:53 Pulse 68 11/27/20 08:53 Resp 16 11/27/20 08:53 BP 106/65 11/27/20 08:53 Pulse Ox 95 11/27/20 08:53 Intake & Output 11/26/20 11/27/20 11/27/20 18:59 06:59 18:59 Intake Total 10 Output Total 1650 800 Balance -1650 10 -800 Weight 122.2 kg 116.5 kg Intake: IV 10 0.9 10 Output: Urine 1650 800 Other: Voiding Method Urinal Toilet Toilet # Voids 1 # Bowel Movements 1 - Exam GENERAL: The patient is alert and oriented x3, not in any acute distress. Well developed, well nourished. HEENT: Pupils are round and equally reacting to light. EOMI. No scleral icterus. No conjunctival pallor. Normocephalic, atraumatic. No pharyngeal erythema. No thyromegaly. CARDIOVASCULAR: S1 and S2 present. No murmurs, rubs, or gallops. PULMONARY: Chest is clear to auscultation, no wheezing or crackles. ABDOMEN: Soft, nontender, nondistended, normoactive bowel sounds. No palpable organomegaly. MUSCULOSKELETAL: No joint swelling or deformity. EXTREMITIES: No cyanosis, clubbing, or pedal edema. NEUROLOGICAL: Gross neurological examination did not reveal any focal deficits. SKIN: No rashes. no petechiae. - Labs CBC & Chem 7: 11/26/20 04:03 11/26/20 04:03 Assessment and Plan Assessment: Acute STEMI status post PCI to LAD Ischemic cardiomyopathy with ejection fraction 35-40%, asymptomatic Right arm pain and swelling secondary to IV line infiltration Hypertension Nicotine dependence Obesity with BMI of 36.5 Plan: This is a pleasant 55 years old male with STEMI. Continue with aspirin and effient , he is on metoprolol and lisinopril. Continue with statin. Cardiology team following patient closely. Labs and medication were reviewed.. Continue same treatment. Continue with symptomatic treatment. Resume home medication. Monitor lytes and vitals. DVT and GI prophylaxis. Further recommendationsas per clinical course of the patient Possible discharge in 24-48 hours if keeps improvement and cleared by cardiology team
[2020-11-27 14:55] LABS: Chol/HDL Ratio 6.37; LDL Cholesterol,Calculated 108.8 mg/dL (0.0-131.0); VLDL Calculation 36.2 mg/dL (5.00-40.00)
[2020-11-27] MEDS: ATORVASTATIN 80 MG TAB PO SCH (20:00)
[2020-11-28] MEDS: PANTOPRAZOLE 40 MG TABLET PO SCH (06:32)
[2020-11-28 08:46] VITALS: BP 147/74; PULSE 67; RESP 16; TEMP 98
[2020-11-28] MEDS: METOPROLOL TARTRATE 25 MG TAB PO SCH (08:46)
[2020-11-28] MEDS: PRASUGREL 10 MG TAB PO SCH (08:46)
[2020-11-28] MEDS: ASPIRIN 81 MG PO SCH (08:46)
[2020-11-28] MEDS: NICOTINE 14MG/24HR PATCH TRANSDERM SCH (08:48)
--- NOTE | 2020-11-28 10:57 | P.PN ---
Subjective This is a pleasant 55-year-old male past medical history significant for hypertension and chronic nicotine dependence. He presents to the hospital with acute anterior wall myocardial infarction. He is status post thrombectomy PCI of the LAD. Echocardiogram obtained revealed impaired LV systolic function with ejection fraction 35-40%, apical anterior, mid inferior septal, apical lateral, apical inferior and apical septal LV wall motion akinesia. He is seen and examined resting comfortably laying flat in bed in no acute distress. He states he was up ambulating in the halls this morning had a shower and ate breakfast without incident. He has no symptoms of chest discomfort, shortness of breath, dizziness or palpitations. He is complaining of pain and swelling to the right arm and hand. Primary care team has ordered a venous Doppler. X-rays are unremarkable. Blood pressure 106/65 heart rate 68 afebrile maintaining oxyg en saturation on room air. Telemetry tracings unremarkable for an arrhythmia. 11/28/2020 Patient seen and examined up ambulating in the room. He denies symptoms of chest discomfort, shortness of breath, dizziness or palpitations. Telemetry tracings reveal persistent sinus mechanism. Vital signs are stable. Lipid panel reviewed, LDL 108, HDL 27, triglycerides 181 and total cholesterol 172. GENERAL: Well-appearing, well-nourished and in no acute distress. NECK: Supple without JVD or thyromegaly. LUNGS: Breath sounds clear to auscultation bilaterally. Respiration equal and unlabored. No wheezes, rales or rhonchi. HEART: Regular rate and rhythm without murmurs, rubs or gallops. S1 and S2 heard. EXTREMITIES: Normal range of motion, no edema. No clubbing or cyanosis. Peripheral pulses intact. ASSESSMENT Anterior wall ST elevated myocardial infarction Ischemic cardiomyopathy Hypertension Dyslipidemia Chronic nicotine dependence PLAN Stable for discharge on current medical regimen. Prescriptions have been sent to the pharmacy. Follow-up with Dr. Burns in the office next week. Nurse Practitioner note has been reviewed, I agree with a documented findings and plan of care. Patient was seen and examined. Objective - Vital Signs Vital signs: Vital Signs Temp 98.0 F 11/28/20 08:41 Pulse 67 11/28/20 08:41 Resp 16 11/28/20 08:41 BP 147/74 11/28/20 08:41 Pulse Ox 94 L 05/20/21 08:41 Intake & Output 11/27/20 11/28/20 11/28/20 18:59 06:59 18:59 Intake Total 250 10 780 Output Total 800 Balance -550 10 780 Weight 116.9 kg Intake: IV 10 0.9 10 Oral 250 780 Output: Urine 800 Other: Voiding Method Toilet Toilet Toilet # Voids 1 2 - Labs CBC & Chem 7: 11/26/20 04:03 11/26/20 04:03 Labs: Abnormal Lab Results - Last 24 Hours (Table) 11/26/20 Range/Units 04:03 Triglycerides 181.0 H (0.0-149.0) mg/dL HDL Cholesterol 27.0 L (40.0-60.0) mg/dL
--- NOTE | 2020-11-28 23:28 | P.DS ---
Providers Date of admission: 11/25/20 16:49 Attending physician: Pasquale Portillo Consults: 11/25/20 16:49 Consult Physician Stat Consulting Provider: Elham Coe Consult Reason/Comments: STEMI Do you want consulting provider notified?: Already Contacted 11/25/20 17:58 Consult Physician Routine Consulting Provider: [facility] Consult Reason/Comments: Post Interventional patient Do you want consulting provider notified?: Already Contacted Primary care physician: Corbin Najera [facility] Course: Diagnoses: Acute STEMI status post PCI to LAD Ischemic cardiomyopathy with ejection fraction 35-40%, asymptomatic Right arm pain and sprain secondary to fall.X-rays negative. No DVT. Follow-up as an outpatient Syncope for 30 seconds prior to presentation related to his STEMI Hypertension Nicotine dependence Obesity with BMI of 36.5 Hospital course: This is a pleasant 55 years old male with past medical history of hypertension, obesity, nicotine dependence presents with chest pain found to have ST elevation myocardial infarction and he had to have a stent placed to his LAD via cardiac cath by cardiology team. Also on admission he passed out for 30 seconds before his coworker called 911. patient complaining from pain in his right middle 3 fingers on extension with some minimal swelling. X-ray no fracture, Doppler ultrasound showing no DVT. His mild swelling is improving. No redness. Also patient denies chest pain or dyspnea. Walking freely in the hallway. Echocardiogram showed ejection fraction of 35-40% with severe LVH. Patient is a started on aspirin and effient , also he is on metoprolol and lisinopril 2.5 mg. Patient agrees to go home. Patient was cleared for discharge by banana room cutter Problems and management plan were discussed with the patient and he verbalized understanding and acceptance Patient was found stable and can be discharged home however he needs follow-up as an outpatient. Patient was instructed to follow up with PCP within one week and patient agrees Patient was instructed to follow up with Dr. Burns in one week. Patient informed about his appointment with Dr. Diaz/PHYLLIS Ramos tomorrow and he agrees. Also patient was instructed to follow up with Dr. Sherman of his hand symptoms does not improve within one week and he agrees I discussed the case with PHYLLIS Ramos from Dr. Najera office as he is off today. I discussed the case with him including his non-STEMI with recommendation for outpatient follow-up with Dr. Burns. Also about his hand pain with negative x-ray and DVT. And he kindly took note of these Physical exam Gen: patient is a AAOx3, no distress CVS: S1-S2, RRR, no murmur Lungs: B/L CTA, no wheezing Abdomen: soft, no distention, no tenderness, positive bowel sounds Extremity: no leg edema or induration Time spent more than 35 minutes Patient Condition at Discharge: Serious Plan - Discharge Summary Discharge Rx Participant: No New Discharge Prescriptions: New Prasugrel [Effient] 10 mg PO DAILY #90 tab lisinopriL [Zestril] 2.5 mg PO DAILY #90 tab Atorvastatin [Lipitor] 80 mg PO HS #90 tab Metoprolol Tartrate [Lopressor] 25 mg PO BID #180 tab Aspirin 81 mg PO DAILY chew Acetaminophen Tab [Tylenol] 500 mg PO Q6HR PRN tab PRN Reason: Fever And/ Or Pain Continue Ibuprofen [Motrin] 800 mg PO TID PRN 3 Days #0 PRN Reason: Pain Discontinued Losartan/Hydrochlorothiazide [Losartan-Hctz 100-25 mg Tab] 1 tab PO QAM Atenolol [Tenormin] 50 mg PO DAILY Discharge Medication List Prasugrel [Effient] 10 mg PO DAILY #90 tab 11/26/20 [Rx] Aspirin 81 mg PO DAILY chew 11/27/20 [Rx] Atorvastatin [Lipitor] 80 mg PO HS #90 tab 11/27/20 [Rx] Metoprolol Tartrate [Lopressor] 25 mg PO BID #180 tab 11/27/20 [Rx] lisinopriL [Zestril] 2.5 mg PO DAILY #90 tab 11/27/20 [Rx] Acetaminophen Tab [Tylenol] 500 mg PO Q6HR PRN tab 11/28/20 [Rx] Ibuprofen [Motrin] 800 mg PO TID PRN 3 Days #0 11/28/20 [Rx] Follow up Appointment(s)/Referral(s): Corbin Mcdermott DO [Doctor of Osteopathic Medicine] - 12/02/20 1:15 pm Corbin Najera DO [Primary Care Provider] - 11/29/20 2:20 pm (with Rachel Velez ) Jhonny Burns MD [STAFF PHYSICIAN] - 1 Week (Office will call for follow-up appt.) Patient Instructions/Handouts: Heart Attack (DC), How to Stop Smoking (DC) Activity/Diet/Wound Care/Special Instructions: Heart healthy diet Activity is restricted until you see your doctor Discharge Disposition: HOME SELF-CARE
== END 2020-11-28 11:55 | disposition home or self-care (01) | DRG 247 ==
LOC: EC 15:55 → 2SICU 16:49 → 3SCARD 11-26 18:25
PROVIDERS: ADMIT Internal Medicine; ATTEND Internal Medicine
PROC: 027034Z Dilation of Coronary Artery, One Artery with Drug-eluting Intraluminal Device, Percutaneous Approach (ICD-10-PCS; principal; 2020-11-25 16:58)
PROC: 02C03ZZ Extirpation of Matter from Coronary Artery, One Artery, Percutaneous Approach (ICD-10-PCS; principal; 2020-11-25 16:58)
PROC: B2111ZZ Fluoroscopy of Multiple Coronary Arteries using Low Osmolar Contrast (ICD-10-PCS; 2020-11-25 16:58)
PROC: 4A023N7 Measurement of Cardiac Sampling and Pressure, Left Heart, Percutaneous Approach (ICD-10-PCS; 2020-11-25 16:58)
DX: I21.09 ST elevation (STEMI) myocardial infarction involving other coronary artery of anterior wall (principal); N17.9 Acute kidney failure, unspecified; I25.10 Atherosclerotic heart disease of native coronary artery without angina pectoris; I10 Essential (primary) hypertension; I25.5 Ischemic cardiomyopathy; E66.9 Obesity, unspecified; W18.30XA Fall on same level, unspecified, initial encounter; S63.91XA Sprain of unspecified part of right wrist and hand, initial encounter; E78.5 Hyperlipidemia, unspecified; F17.210 Nicotine dependence, cigarettes, uncomplicated; Z68.36 Body mass index [BMI] 36.0-36.9, adult; Z79.82 Long term (current) use of aspirin; Z82.49 Family history of ischemic heart disease and other diseases of the circulatory system; Z79.899 Other long term (current) drug therapy
CPT/HCPCS: 36415; 71046; 80048; 80053; 80061; 81003; 83690; 83735; 83880; 84484; 85025; 85610; 85730; 87635; 93005; 93306; 93458; 96374; 96375; 99285

== ENCOUNTER 2021-01-16 08:43 | Day surgery (SDC) | payer OTHER ==
[2021-01-10 15:55] VITALS: BMI 35.2
[~2021-01-16 08:43] MED LIST: ALPRAZolam 0.25 MG TAB PO PRN; ALPRAZolam 0.5 MG TAB PO PRN; ASPIRIN 325 MG TAB PO STA; ATORVASTATIN 80 MG TAB PO STA; NITROGLYCERIN SL TABS 0.4 MG TAB SUBLINGUAL PRN; SODIUM CHLORIDE 0.9% 1,000 ML in EMPTY BAG 1 BAG IV ONE
[2021-01-16 09:17] LABS: Basophils % (A) 1 %; Eosinophils # (A) 0.1 k/uL (0-0.7); Eosinophils % (A) 3 %; HCT 42.6 % (39.0-53.0); HGB 15.5 gm/dL (13.0-17.5); Hyperchromasia Slight; Lymphocytes # (A) 2.4 k/uL (1.0-4.8); Lymphocytes % (A) 46 %; MCH 33.7 pg (25.0-35.0); MCHC 36.4 g/dL (31.0-37.0); MCV 92.5 fL (80.0-100.0); Mean Platelet Volume 7.9; Monocytes # (A) 0.3 k/uL (0-1.0); Monocytes % (A) 6 %; Neutrophils # (A) 2.3 k/uL (1.3-7.7); Neutrophils % (A) 44 %; Platelet Count 143 k/uL (150-450); RBC 4.61 m/uL (4.30-5.90); RDW 13.5 % (11.5-15.5); WBC 5.2 k/uL (3.8-10.6)
[2021-01-16 09:25] LABS: African American GFR (CKD) >90 (>60 ml/min/1.73 sqM); Anion Gap 6 mmol/L; Blood Urea Nitrogen 11 mg/dL (9-20); Calcium 9.5 mg/dL (8.4-10.2); Carbon Dioxide 27 mmol/L (22-30); Chloride 108 mmol/L (98-107); Glucose 119 mg/dL (74-99); Non-African American GFR(CKD) >90 (>60 ml/min/1.73 sqM); Sodium 141 mmol/L (137-145)
[2021-01-16] MEDS ORDERED: SODIUM CHLORIDE 0.9% 1,000 ML IV ONE (09:28)
[2021-01-16] MEDS ORDERED: LIDOCAINE 1% INJ 10MG/ML (20 ML MDV) ONE (10:54)
[2021-01-16] MEDS ORDERED: fentaNYL (PF) 50 MCG/ML 2 ML AMP ONE (10:54)
[2021-01-16] MEDS ORDERED: fentaNYL (PF) 50 MCG/ML 2 ML AMP IV ONE (11:00)
[2021-01-16] MEDS ORDERED: MIDAZOLAM 2 MG/2 ML VIAL IV ONE (11:00)
[2021-01-16] MEDS ORDERED: LIDOCAINE 1% INJ 10MG/ML (20 ML MDV) SQ ONE (11:03)
[2021-01-16] MEDS ORDERED: IOPAMIDOL-370 125ML BTL INJ ONE (11:14)
[2021-01-16] MEDS ORDERED: RX INFO: IV CONTRAST WAS GIVEN 1 EACH MISC MISCELLANE PRN (11:35)
--- NOTE | 2021-01-16 13:02 | CC ---
CARDIAC CATHETERIZATION REPORT INDICATION: Unstable angina. This is 55-year-old gentleman with known coronary artery disease status post prior angioplasty of LAD who presented to us with episodes of chest pain, exertional fatigue and shortness of breath and was advised to undergo cardiac catheterization to rule out restenoses in the LAD or any significant disease in the right OM. PROCEDURE NOTE: After obtaining informed consent, left heart catheterization and coronary angiogram were performed via the right femoral artery using standard Beau catheters. The patient tolerated the procedure well without any obvious immediate complications. A femoral angiogram was performed and patient had manual hemostasis. Patient received moderate conscious sedation. Total sedation time was 17 minutes. FINDINGS: HEMODYNAMICS: Left ventricular end-diastolic pressure is 18 mm. There is no significant gradient across the aortic valve. LEFT VENTRICULOGRAM: Not performed. ANGIOGRAPHIC DATA: LEFT MAIN CORONARY ARTERY: Left main coronary artery is a normal-sized vessel. It is free of stenosis. Divides into left anterior descending coronary artery and circumflex coronary artery. LAD was previously stented and the stent appears patent. CIRCUMFLEX CORONARY ARTERY gives off a large caliber OM branch that has a 40% stenosis. RIGHT CORONARY ARTERY: Large dominant vessel and there is atherosclerotic plaque in the proximal portion. At its worst, it seems to be 30% to 40% stenosis. CONCLUSIONS: 1. Patent stent within the LAD. 2. [id number] nonobstructive plaque involving the right coronary artery and OM branch. PLAN: I reviewed angiographic data with the patient and advised him on medical therapy at this time. MMODL / IJN: [id number] /
--- NOTE | 2021-01-16 13:05 | LTR ---
DATE OF SERVICE: 01/16/2021 Dear Corbin: I performed cardiac catheterization on Huy Dubois. A detailed catheterization noted is enclosed for your records. In brief, cardiac catheterization reveals patent stent within the LAD without significant obstructive disease involving the right coronary artery and circumflex coronary artery. I advised patient medical therapy and aggressive risk factor modification. Thank you for giving me the privilege to participate in the care of this pleasant gentleman. Sincerely, JOYE / EMILYN: [id number] /
[2021-01-16 14:39] VITALS: RESP 16
[2021-01-16 15:25] VITALS: BP 125/81; TEMP 97.6
[2021-01-16 15:37] VITALS: PULSE 65
== END 2021-01-16 19:06 | disposition home or self-care (01) ==
LOC: CATHCVL 08:43 → 6NMEDSUR 11:17 → CATHCVL 19:06
PROVIDERS: ATTEND Internal Medicine Cardiovascular Disease
DX: I25.110 Atherosclerotic heart disease of native coronary artery with unstable angina pectoris (principal); I10 Essential (primary) hypertension; I25.2 Old myocardial infarction; E78.5 Hyperlipidemia, unspecified; Z72.0 Tobacco use; Z95.5 Presence of coronary angioplasty implant and graft; I25.5 Ischemic cardiomyopathy; R94.39 Abnormal result of other cardiovascular function study; Z79.82 Long term (current) use of aspirin; Z79.899 Other long term (current) drug therapy
CPT/HCPCS: 93458; 80048; 85025; C1760; C1894; C1769; J2250; J2001; J3010; Q9967

== ENCOUNTER → 2022-01-14 | Outpatient (CLI) | payer OTHER ==
[2022-01-14 14:20] LABS: HCT 42.3 % (39.6-50.0); HGB 15.1 g/dL (13.0-17.0); MCH 32.5 pg (27.0-32.0); MCHC 35.7 g/dL (32.0-37.0); Mean Platelet Volume 10.6 fL (9.5-12.2); NRBC Per 100 WBC 0 /100 WBCS (0.0-0.0); Platelet Count 152 X 10*3/uL (140-440); RBC 4.65 X 10*6/uL (4.40-5.60); RDW 13.2 % (11.5-14.5); WBC 5.56 X 10*3/uL (4.50-10.00)
[2022-01-14 14:26] LABS: African American GFR (CKD) 96.6 (60.0-200.0); Anion Gap 9.2 mmol/L (10.00-18.00); Blood Urea Nitrogen 9.8 mg/dL (9.0-27.0); Carbon Dioxide 26.8 mmol/L (20.0-27.5); Non-African American GFR(CKD) 83.4 (60.0-200.0); Potassium 4.1 mmol/L (3.5-5.5)
== END | disposition home or self-care (01) ==
LOC: LABPAT 07:50
PROVIDERS: ATTEND Internal Medicine Clinical Cardiac Electrophysiology
DX: Z01.812 Encounter for preprocedural laboratory examination (principal); I10 Essential (primary) hypertension; I71.4 Abdominal aortic aneurysm, without rupture; E78.2 Mixed hyperlipidemia
CPT/HCPCS: 80051; 82565; 84520; 85027

== ENCOUNTER 2022-01-27 13:06 | Day surgery (SDC) | payer OTHER ==
[2022-01-23 12:32] VITALS: BMI 32.5
[~2022-01-27 13:06] MED LIST changes: -ALPRAZolam 0.25 MG TAB PO PRN; -ALPRAZolam 0.5 MG TAB PO PRN; -ASPIRIN 325 MG TAB PO STA; -ATORVASTATIN 80 MG TAB PO STA; +DAPTOmycin 500 MG in SODIUM CHLORIDE 0.9% 50 ML IVPB ONE; -NITROGLYCERIN SL TABS 0.4 MG TAB SUBLINGUAL PRN; -SODIUM CHLORIDE 0.9% 1,000 ML in EMPTY BAG 1 BAG IV ONE
[2022-01-27] MEDS: SODIUM CHLORIDE 0.9% 1,000 ML IV SCH (13:44)
[2022-01-27] MEDS ORDERED: PROPOFOL 10 MG/ML 20 ML VIAL IV ONE (14:44)
[2022-01-27] MEDS ORDERED: KETAMINE 10 MG/ML 20 ML VIAL ONE (14:44)
[2022-01-27] MEDS ORDERED: fentaNYL (PF) 50 MCG/ML 2 ML AMP ONE (14:44)
[2022-01-27] MEDS ORDERED: MIDAZOLAM 2 MG/2 ML VIAL ONE (14:44)
[2022-01-27] MEDS ORDERED: ceFAZolin 1 GM in SODIUM CHLORIDE 0.9% IRRIG BTL 250 ML IRRIGATION PRN (14:51)
[2022-01-27] MEDS ORDERED: SODIUM CHLORIDE 0.9% 1,000 ML IV SCH ×2 (15:00)
[2022-01-27] MEDS ORDERED: LIDOCAINE 1% INJ 10MG/ML (30 ML VIAL-PF) SQ ONE (15:33)
[2022-01-27] MEDS: LACTATED RINGERS 1,000 ML IV SCH ×3 (19:22→19:25)
[2022-01-27] MEDS: SACUBITRIL/VALSARTAN 24 MG-26 MG TABLET PO SCH (20:37)
[2022-01-27] MEDS: ACETAMINOPHEN TAB 325 MG TAB PO PRN (20:37)
[2022-01-27] MEDS: METOPROLOL TARTRATE 25 MG TAB PO SCH (20:38)
[2022-01-27] MEDS ORDERED: ATORVASTATIN 80 MG TAB PO SCH (21:00)
--- NOTE | 2022-01-27 21:25 | XR ---
EXAMINATION TYPE: XR chest 1V portable DATE OF EXAM: 01/27/2022 COMPARISON: 11/24/2021 HISTORY: Check lead placement TECHNIQUE: Single view FINDINGS: There is no heart failure nor confluent pneumonic infiltrate. There is left axillary pacema ker with the lead tips over the right ventricle. Heart size is fairly normal. No pleural effusion. IMPRESSION: No active cardiopulmonary disease. There is clearing of the mild congestion compared to o ld exam.
[2022-01-28 00:55] VITALS: RESP 16
[2022-01-28] MEDS: ACETAMINOPHEN TAB 325 MG TAB PO PRN ×2 (03:27→08:20)
[2022-01-28] MEDS: SODIUM CHLORIDE 0.9% 1,000 ML IV SCH (03:29)
[2022-01-28 03:54] VITALS: TEMP 98
[2022-01-28] MEDS: METOPROLOL TARTRATE 25 MG TAB PO SCH (08:20)
[2022-01-28] MEDS: SACUBITRIL/VALSARTAN 24 MG-26 MG TABLET PO SCH (08:20)
[2022-01-28] MEDS ORDERED: HYDROcodone/APAP 5-325MG 1 EACH TAB PO PRN (08:35)
[2022-01-28] MEDS ORDERED: FUROSEMIDE 40 MG TAB PO SCH (09:00)
[2022-01-28] MEDS ORDERED: ISOSORBIDE MONONITRATE ER 30 MG TAB.ER.24H PO SCH (09:00)
[2022-01-28] MEDS ORDERED: SPIRONOLACTONE 25 MG TAB PO SCH (09:00)
[2022-01-28] MEDS ORDERED: ASPIRIN 81 MG PO SCH (09:00)
--- NOTE | 2022-01-28 11:46 | P.EPPROC ---
- EP Procedure Note Electrophysiology Procedure Note: Diagnosis Bradycardia, standard pacemaker will result in RV pacing >40% Procedure LV/ biventricular ICD implantation Details Patient was brought to the EP lab in a fasting state. Written informed consent was obtained prior to the procedure. Conscious sedation provided by anesthesia team IV antibiotics administered. Local anesthesia administered. A 4 cm incision made in the pectoral area. Subfascial pocket made. Venous access obtained Venous sheaths placed. Leads placed in the right heart Atrial lead position the right atrial appendage. Medtronic screw-in lead 52 cm Pacing threshold 0.5 also 0.5 ms pacing impedance 532 ohms P waves 1.6 mV 10 V test negative RV lead position in the RV apex. Medtronic active fix lead, R waves 7 mV, pacing impedance 608 ohms and pacing threshold 0.5 also 0.5 ms LV lead positioned in the LV vein, screw-in Medtronic lead LV lead in posterior lateral vein. Pacing threshold 0.5 also 0.5 ms pacing impedance of 513 ohms and no diaphragmatic stimulation Biventricular pacemaker device connected to the leads and placed in the subfascial pocket Tyrx pouch placed Patient tolerance the procedure well without acute complications This is a very long procedure on account of the patient's RA, RV and LV size and intracardiac pressures Patient has severely dilated right and left ventricle with elevated intracardiac pressures Left bundle pacing was attempted and while we were able to positioned the lead appropriately on the right side of the septum, this lead was repeatedly unstable Coronary sinus access was very difficult and required changing multiple sheaths access to CS Once again it was account of the right atrial size and pressures The patient had a large posterior lateral vein and an anterior vein The tortuosity of the anterior vein did not allow the angioplasty wire passed through The posterior lateral vein was accessed with some difficulty but the final lead position and thresholds and function were excellent A screw-in Medtronic lead was used and a very stable position with excellent thresholds was finally achieved
--- NOTE | 2022-01-28 11:49 | P.DS ---
Providers Attending physician: Eben Car Primary care physician: [facility] Course: Patient is doing well. No hematoma Mild discomfort in the pectoral area over the ICD site Lungs are clear Heart sounds S1 and S2 are normal No JVD Patient sitting up comfortably in the chair Blood pressure 111 was 68 mmHg respiratory rate 16, pulse ox normal Pulse rate in the 60s Impression Severe cardio myopathy Class III heart failure Dilated right atrium and right ventricle and left ventricle with elevated pressures Status post mildly ICD with LV lead placement in the posterior lateral vein Plan Discharge home Plan - Discharge Summary Discharge Rx Participant: No New Discharge Prescriptions: No Action Isosorbide Mononitrate ER [Imdur] 30 mg PO DAILY #90 tab Ibuprofen 800 mg PO Q8H PRN PRN Reason: Moderate Pain Spironolactone [Aldactone] 25 mg PO DAILY 30 Days #30 tab Furosemide [Lasix] 40 mg PO DAILY 30 Days #30 tab Atorvastatin [Lipitor] 80 mg PO HS #90 tab Metoprolol Tartrate [Lopressor] 25 mg PO BID #180 tab Aspirin 81 mg PO DAILY chew Acetaminophen Tab [Tylenol] 500 mg PO Q4H PRN PRN Reason: pain Cholecalciferol (Vitamin D3) [Vitamin D3 (3000 Iu)] 75 mcg PO DAILY Sacubitril/Valsartan [Entresto 24 mg-26 mg Tablet] 1 each PO BID Discharge Medication List Aspirin 81 mg PO DAILY chew 11/27/20 [Rx] Atorvastatin [Lipitor] 80 mg PO HS #90 tab 11/27/20 [Rx] Metoprolol Tartrate [Lopressor] 25 mg PO BID #180 tab 11/27/20 [Rx] Isosorbide Mononitrate ER [Imdur] 30 mg PO DAILY #90 tab 01/16/21 [Rx] Acetaminophen Tab [Tylenol] 500 mg PO Q4H PRN 11/24/21 [History] Ibuprofen 800 mg PO Q8H PRN 11/24/21 [History] Furosemide [Lasix] 40 mg PO DAILY 30 Days #30 tab 11/26/21 [Rx] Spironolactone [Aldactone] 25 mg PO DAILY 30 Days #30 tab 11/26/21 [Rx] Cholecalciferol (Vitamin D3) [Vitamin D3 (3000 Iu)] 75 mcg PO DAILY 01/23/22 [History] Sacubitril/Valsartan [Entresto 24 mg-26 mg Tablet] 1 each PO BID 01/23/22 [History]
[2022-01-28 13:14] VITALS: BP 128/90; PULSE 94
== END 2022-01-28 13:17 | disposition home or self-care (01) ==
LOC: CATHEP 13:06 → 3SCARD 17:55 → CATHEP 01-28 13:17
PROVIDERS: ATTEND Internal Medicine Clinical Cardiac Electrophysiology
DX: R00.1 Bradycardia, unspecified (principal); I25.5 Ischemic cardiomyopathy; I44.7 Left bundle-branch block, unspecified; Z95.5 Presence of coronary angioplasty implant and graft; I50.9 Heart failure, unspecified; F17.200 Nicotine dependence, unspecified, uncomplicated; Z20.822 Contact with and (suspected) exposure to COVID-19; Z86.16 Personal history of COVID-19; I10 Essential (primary) hypertension; E78.5 Hyperlipidemia, unspecified; Z88.2 Allergy status to sulfonamides; Z88.8 Allergy status to other drugs, medicaments and biological substances; Z79.82 Long term (current) use of aspirin; Z79.899 Other long term (current) drug therapy; Z91.09 Other allergy status, other than to drugs and biological substances
CPT/HCPCS: 33225; 33249; 87635; 71045; C1769 ×4; C1882; C1892 ×2; C1730; C1887; C1898; C1895; J2250; J0690 ×2; J2001; J3010; J0878; J2704

== ENCOUNTER → 2022-12-18 | Outpatient (CLI) | payer BC ==
--- NOTE | 2022-12-22 14:48 | US ---
EXAMINATION TYPE: US arterial LE single level DATE OF EXAM: 12/18/2022 10:21 AM CLINICAL INDICATION: Male, 57 years old with history of M79.604, M79.605; Bilateral leg pain History of: Smoker: Previous Hypertension: yes Diabetic: no Hyperlipidemia: unsure Previous Vascular Surgery: yes, heart stents Doppler Waveforms: Right: Multiphasic Left: Multiphasic Right Brachial Pressure: 102 Left Brachial Pressure: 102 Ankle-Brachial Indices: Right: 1.10 Left: 1.17 Toe Brachial Indices: Right: 0.73 Left: 0.66 IMPRESSION: 1. Normal bilateral NEIL. 2. Borderline abnormal left TBI suggestive of mild peripheral vascular occlusive disease.
== END | disposition home or self-care (01) ==
LOC: RADUSWWP 09:46
PROVIDERS: ATTEND Family Medicine
DX: M79.604 Pain in right leg (principal); M79.605 Pain in left leg
CPT/HCPCS: 93922

== ENCOUNTER 2023-08-17 10:09 | Day surgery (SDC) | payer BC ==
[2023-08-13 09:42] VITALS: BMI 32.7
[~2023-08-17 10:09] MED LIST changes: -DAPTOmycin 500 MG in SODIUM CHLORIDE 0.9% 50 ML IVPB ONE; +LACTATED RINGERS 1,000 ML IV SCH; +LIDOCAINE 1% (10MG/ML) FOR IV START INTRADERMA PRN
[2023-08-17 11:05] VITALS: RESP 16; TEMP 97.5
[2023-08-17] MEDS ORDERED: PROPOFOL 10 MG/ML 20 ML VIAL IV ONE (11:53)
[2023-08-17] MEDS: LACTATED RINGERS 1,000 ML IV ONE ×2 (12:15→12:54)
--- NOTE | 2023-08-17 12:17 | P.PCN ---
Date of Procedure: 08/17/23 Procedure(s) Performed: BRIEF HISTORY: Patient is a 58-year-old pleasant male scheduled for an elective colonoscopy as a part of screening for colon cancer/positive cologuard. PROCEDURE PERFORMED: Colonoscopy with snare polypectomy. PREOPERATIVE DIAGNOSIS: Screening for colon cancer/positive cologuard. IV sedation per Anesthesia. PROCEDURE: After informed consent was obtained, the patient, was brought into the endoscopy unit. IV sedation was administered by Anesthesia under continuous monitoring. Digital rectal examination was normal. Initially the Olympus CF-160 flexible video colonoscope was then inserted in the rectum, gradually advanced into the cecum without any difficulty. Careful examination was performed as the scope was gradually being withdrawn. Ileocecal valve and the appendiceal orifice were visualized and appeared normal. Prep was excellent. Mucosa of the cecum, ascending colon, appeared normal. In the transverse colon there was a 5 mm polyp by cold snare polypectomy. In the descending colon there was a 1 cm polyp removed by snare polypectomy. In the sigmoid colon at 25 cm from the anal was there was a 2 cm pegylated polyp removed by snare polypectomy. Scattered left- sided diverticulosis seen. In the rectum there were 4 polyps measuring between 5 mm, one centimeter 2 and a 7 mm polyp all of which were removed by snare polypectomy.. Retroflexion was performed in the rectum and no lesions were seen. The patient tolerated the procedure well. IMPRESSION: 5 mm transverse colon polyp status post snare polypectomy 1 cm descending colon polyp status post polypectomy 2 cm pedunculated distal sigmoid: Polyp status post polypectomy 5 mm, 7 mm, 1 cm 2 rectal polyps status post polypectomy Scattered sigmoid diverticulosis RECOMMENDATIONS: Findings of this examination were discussed with the patient as well as his family. He was advised to follow with the biopsy biopsy results. If the biopsy reveals adenoma he can have a repeat colonoscopy in 3 years.
[2023-08-17] MEDS: HYDROcodone/APAP 5-325MG 1 EACH TAB PO ONE (12:45)
[2023-08-17 13:04] VITALS: BP 112/75; PULSE 50
== END 2023-08-17 13:10 | disposition home or self-care (01) ==
LOC: ORWHC2ENDO 10:09
PROVIDERS: ATTEND Internal Medicine Gastroenterology
DX: D12.4 Benign neoplasm of descending colon (principal); D12.3 Benign neoplasm of transverse colon; D12.5 Benign neoplasm of sigmoid colon; D12.8 Benign neoplasm of rectum; K57.30 Diverticulosis of large intestine without perforation or abscess without bleeding; Z88.2 Allergy status to sulfonamides; Z91.09 Other allergy status, other than to drugs and biological substances; F17.290 Nicotine dependence, other tobacco product, uncomplicated; Z79.82 Long term (current) use of aspirin; Z79.899 Other long term (current) drug therapy
CPT/HCPCS: 88305; 45385; J2704

== ENCOUNTER → 2023-10-18 | Outpatient (CLI) | payer BC ==
[2023-10-18 21:22] LABS: NT-Pro-B-Type Natriuretic Pept 114 pg/mL (0-125)
[2023-10-18 21:23] LABS: Calcium 9.4 mg/dL (8.7-10.3); Carbon Dioxide 26.3 mmol/L (21.6-31.8); Chloride 100 mmol/L (96-109); Glucose 119 mg/dL (70-110); Sodium 137 mmol/L (135-145)
== END | disposition home or self-care (01) ==
LOC: LABWHC1 10:01
PROVIDERS: ATTEND Internal Medicine Cardiovascular Disease
DX: I50.22 Chronic systolic (congestive) heart failure (principal)
CPT/HCPCS: 36415; 80048; 83880